=== PATIENT | female | born 1955 | race African-American/Black ===

== ENCOUNTER → 2020-08-21 | Outpatient (CLI) | payer OTHER ==
[2016-05-06 11:32] VITALS: BP 141/85
[~2020-08-21] MED LIST: LISI1TAB23 PO; LISI1TAB37 PO; VENL75CA PO
--- NOTE | 2020-08-21 16:41 | KCIC ---
Bilateral digital screening mammograms Reason for examination: Routine screening. Comparison is made to previous study dated June 17, 2016 Routine CC and MLO digital views obtained. Interpretation was made with the benefit of CAD. The skin and nipples show no abnormalities. No abnormal lymph nodes are seen. The breast parenchyma is scattered fibroglandular elements. (Breast density: Category B.) There are no suspicious masses, suspicious calcifications or architectural distortions. Benign right lower breast posterior depth calcification. Impression: Negative mammogram. Recommend routine screening. BI-RADS Category 2: Benign. "Our facility is accredited by the [employer] Mamm[employer]." This patient's information has been entered into a reminder system for the patient to be notified with the results of her examination and a target date for the next mammogram. Electronically signed by: Mark Desai MD (08/21/2020 4:38 PM) [email or web address]
== END ==
LOC: KCIC MAMMO 08:01
PROVIDERS: ATTEND Family Medicine
DX: Z12.31 Encounter for screening mammogram for malignant neoplasm of breast (principal)
CPT/HCPCS: 77067